=== PATIENT | female | born 1955 | race Caucasian/White ===

== ENCOUNTER → 2017-05-21 | Outpatient (CLI) | payer OTHER ==
[~2017-05-21] MED LIST: ACET-1138 PO; ACET-1256 PO; ASPEC325 PO; ASPI-390 PO; EFFSR150 PO; ERGO1CAP35 PO; HYDR25TA4 PO; HYOS1TAB PO; LEVO25TA5 PO; LINIGEL19 TOP; NAPR1TAB9 PO; RXC5 PO
--- NOTE | 2017-05-21 15:10 | MAMMOGRAPHY REPORT ---
BILATERAL DIGITAL SCREENING MAMMOGRAM TOMOSYNTHESIS WITH CAD: 05/21/2017 CLINICAL HISTORY: Routine screening. Patient has no complaints. TECHNIQUE: Breast tomosynthesis in addition to standard 2D mammography was performed. Current study was also evaluated with a Computer Aided Detection (CAD) system. COMPARISON: Comparison is made to exams dated: 05/22/2011 mammogram - [facility], , and 10/19/2008, 07/13/2007. BREAST COMPOSITION: There are scattered areas of fibroglandular density in both breasts. FINDINGS: There is a new circumscribed 2.7 cm mass seen within the right anterior breast at approxima tely 3:00, for which targeted ultrasound is recommended for further evaluation. This may represent a cyst. The remainder of both breasts are stable compared to prior exams, without suspicious masses, calcific ations, or areas of architectural distortion noted. Scattered bilateral benign-appearing calcificati ons are not significantly changed. Bilateral asymmetries are stable, including a focal asymmetry in the right upper outer quadrant as well as an asymmetry within the left subareolar breast. IMPRESSION: ACR BI-RADS CATEGORY 0: INCOMPLETE EVALUATION: NEED ADDITIONAL IMAGING EVALUATION Right breast mass, for which additional imaging evaluation is recommended. The patient will be kang d to schedule an appointment. Approximately 10% of breast cancers are not detected with mammography. A negative mammographic report should not delay biopsy if a clinically suggestive mass is present. Lori Jackson M.D. /:05/21/2017 07:55:28 Control Officer: Brianna Polanco, [facility] letter sent: Addl Imaging 0 BI-RADS Code: ACR BI-RADS Category 0: Incomplete Evaluation: Need Additional Imaging Evaluation
== END | disposition home or self-care (01) ==
LOC: C.MAMM 07:27
PROVIDERS: ATTEND Family Medicine
DX: Z12.31 Encounter for screening mammogram for malignant neoplasm of breast (principal); N63.10 Unspecified lump in the right breast, unspecified quadrant

== ENCOUNTER → 2017-06-02 | Outpatient (CLI) | payer OTHER ==
--- NOTE | 2017-06-02 15:15 | MAMMOGRAPHY REPORT ---
ULTRASOUND OF RIGHT BREAST: 06/02/2017 CLINICAL HISTORY: 62-year-old woman called back from screening mammography for a newly visualized 2.7 cm mass in the 3:00 anterior right breast. COMPARISON: Comparison is made to exams dated: 05/21/2017 mammogram, 05/22/2011 mammogram - [facility], 11/01/2008, 10/19/2008, and 07/13/2007. FINDINGS: Targeted ultrasound was performed in the 3:00 anterior right breast in the expected locati on of the new 2.7 cm circumscribed mammographic mass. In the 3:00 periareolar right breast, there is an oval circumscribed parallel hypoechoic solid mass measuring 2.9 x 1.6 x 2.4 cm, and smaller abutt ing 0.7 cm mass versus prominent lobulation near the superior aspect of the dominant mass. No signif icant increased vascularity is demonstrated. Given that this mass is new comparing to the prior avai lable 2011 mammogram and solid in nature, definitive characterization with an ultrasound-guided core needle biopsy is recommended. IMPRESSION: ACR BI-RADS CATEGORY 4: SUSPICIOUS - FOLLOW-UP RECOMMENDED 1. Right breast ultrasound guided core biopsy is recommended for a new solid 2.9 cm mass in the 3:00 periareolar breast. These results and recommendations were discussed with the patient at the time of the exam. She tenta tively scheduled the biopsy prior to leaving the department. Alem Holland M.D. ay/:06/02/2017 10:09:08 Car Scrubber: Megan TEMPLE)(Edgardo), [facility] letter sent: Abnormal 4/5 BI-RADS Code: ACR BI-RADS Category 4: Suspicious
== END | disposition home or self-care (01) ==
LOC: C.MAMM 09:23
PROVIDERS: ATTEND Family Medicine
DX: N63.12 Unspecified lump in the right breast, upper inner quadrant (principal)

== ENCOUNTER → 2017-06-12 | Outpatient (CLI) | payer OTHER ==
--- NOTE | 2017-06-12 14:01 | Discharge Instructions ---
Discharge Instructions Procedure Procedure Date: Jun 12, 2017. Reason for visit: Right Mass. Discharge Discharge Date: Jun 12, 2017. Discharge Diagnosis: status post breast biopsy Instructions Activity Recommendations: Additional Limitations (see below) Return to School/Work: no limitations Recommended Home Diet: No Limitations Provider Instructions: ACTIVITY RECOMMENDATIONS: * No lifting, pushing, pulling or exercising the affected side for three days. RETURN TO SCHOOL/WORK: * You may return to work/school after the procedure, but do not perform any strenuous activities for 24 to 48 hours. MEDICATIONS: * Tylenol (two 325 mg) every four to six hours if needed for mild pain (if not allergic to Tylenol). DIET: * Resume previous diet. SPECIAL CARE INSTRUCTIONS: * Keep biopsy site dry for 24 hours. May shower after 24 hours, but do not soak (bathe) incision. * May remove Tegaderm (plastic patch) tomorrow AFTER showering. * Leave the steri-strips on for one week. Allow the steri-strips to fall off by themselves. If not off after one week, you may remove them. You may place a Bandaid crosswise over the strips, if desired. * Apply ice 10 minutes on and 10 minutes off as needed. * Wear a bra at bedtime to sleep more comfortably for 2-3 days. * Your referring physician should have the results after approximately 5 to 7 business days. * Call for unusual bleeding, fever, drainage, etc or if you have any questions call during normal business hours or after hours call Dr Jackson, . FOLLOW UP VISIT: Follow-up with Referring Physician as scheduled. Allergies Coded Allergies: No Known Allergies (Verified , 01/29/16) Jessica Hill Recommendations: Call your doctor if: * Temperature above 101 degrees * Pain not relieved by pain medicine ordered * There is increased drainage or redness from any incision * You have any unanswered questions or concerns. Your Doctors Instructions noted above were prepared by provider Lori Jackson. Patient Signature Section: Patient Instructions Signature Page Nia Brower Patient (or Guardian) Signature/Date: I have read and understand the instructions given to me by my caregivers. Caregiver/RN/Doctor Signature/Date: The above-named patient and/or guardian has received patient instructions on this date. + Original Patient Signature Page (only) stays with chart. Please make copy for patient.
--- NOTE | 2017-06-15 15:17 | MAMMOGRAPHY REPORT ---
ULTRASOUND GUIDED BIOPSY RIGHT BREAST: 06/12/2017 CLINICAL HISTORY: Right 3:00 periareolar breast mass. PATIENT CONSENT: The procedure, risks and benefits were discussed with the patient and informed writt en consent was obtained. A timeout was performed immediately prior to the procedure. PROCEDURE DESCRIPTION: With ultrasound guidance, aseptic technique, and lidocaine as the local anesth etic (1% lidocaine to anesthetize the skin and 1% lidocaine with epinephrine to anesthetize the deepe r tissues), the mass of concern in the right 3:00 periareolar breast was sampled 3 times with a 14-ga uge Achieve biopsy needle. Immediately thereafter, with ultrasound guidance, aseptic technique, and lidocaine as the local anesthetic, a metallic localizer clip was placed centrally in the mass. Direc t pressure was applied to the site immediately post procedure and hemostasis was achieved. Postproce dure unilateral mammograms were performed to confirm placement of the clip in the expected location o f the breast mass. The patient tolerated the procedure without complication. She was given wound ca re instructions. The specimens were sent to pathology for analysis. COMPARISON: Comparison is made to exams dated: 06/02/2017 ultrasound, 05/21/2017 mammogram, 05/22/2011 mammogram - [facility], 11/01/2008, 10/19/2008, and 07/13/2007. IMPRESSION: ULTRASOUND GUIDED BIOPSY Ultrasound-guided core needle biopsy of the right 3:00 breast mass, with clip placement. The patient will receive pathology results from her referring provider. Lori Jackson M.D. ah/:06/12/2017 14:02:50 Heel Scorer: Brianna TEMPLE)(Edgardo), [facility]
--- NOTE | 2017-06-15 15:19 | MAMMOGRAPHY REPORT ---
UNILATERAL RIGHT DIGITAL DIAGNOSTIC MAMMOGRAM: 06/12/2017 CLINICAL HISTORY: Status post right breast biopsy. TECHNIQUE: Postprocedural right CC and ML views were obtained. COMPARISON: Comparison is made to exams dated: 05/21/2017 mammogram, 06/02/2017 ultrasound, 05/22/2011 mammogram - [facility], and 11/01/2008. BREAST COMPOSITION: There are scattered areas of fibroglandular density in the right breast. FINDINGS: A new biopsy marker clip is seen within the biopsied mass in the right 3:00 breast. No sig nificant postbiopsy hematoma is seen. IMPRESSION: POST PROCEDURE IMAGING FOR MARKER PLACEMENT New biopsy marker clip status post right breast biopsy. Pathology results are pending. Approximately 10% of breast cancers are not detected with mammography. A negative mammographic report should not delay biopsy if a clinically suggestive mass is present. Lori Jackson M.D. ah/:06/12/2017 14:43:51 [employer] Rep: Brianna Cabello RT(R)(M), [facility] BI-RADS Code: Post Procedure Imaging For Marker Placement
== END | disposition home or self-care (01) ==
LOC: C.MAMM 13:34
PROVIDERS: ATTEND Family Medicine
DX: R92.8 Other abnormal and inconclusive findings on diagnostic imaging of breast (principal); N63.10 Unspecified lump in the right breast, unspecified quadrant; D24.1 Benign neoplasm of right breast

== ENCOUNTER 2019-04-24 12:06 | Inpatient (IN) ==
--- OUTSIDE RECORDS SUMMARY | 2019-04-24 12:09 | External Medical Summary | Continuity of Care Document ---
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.9) (D17.9) Allergies and Adverse Reactions No Known Drug Allergies (Allergy) Medications B-12 TABS Refills: [address] Arthritis Pain 500 MG TABS Refills: 0 Omeprazole 40 MG Oral Capsule Delayed Release Refills: 0 hydroCHLOROthiazide 25 MG Oral Tablet Refills: 0 Codeine Sulfate 30 MG Oral Tablet Refills: 0 Effexor XR 75 MG Oral Capsule Extended Release 24 Hour Refills: 0 Procedures History of Hysterectomy Status: Complete d Immunizations Immunizations not documented Family History Father Family history of Diabetes Mellitus (V18.0) Status: Active Family history of Hypertension (V17.49) Status: Active Social History - Smoking Status Smoker. current status unknown Plan of Treatment Planned Observations Planned Goals not documented Results No Known Results Results not documented Encounters Appointment; Larry Redd M.D. 29-May-2011 10:30 Encounter Diagnosis: Problem not documented
--- OUTSIDE RECORDS SUMMARY | 2019-04-24 12:09 | External Medical Summary | Continuity of Care Document ---
:1955 Author Name Haily Flower, Provider Address Unavailable Unavailable , Care Team Providers Name Role Phone Tramaine Flower, Larry Lanier Unavailable [email or web address] Unavailable Unavailable Problems Lipoma (214.9) (D17.9) Allergies and Adverse Reactions No Known Drug Allergies (Allergy) Medications Effexor XR 75 MG Oral Capsule Extended Release 24 Hour Refills: 0 Codeine Sulfate 30 MG Oral Tablet Refills: 0 hydroCHLOROthiazide 25 MG Oral Tablet Refills: 0 Omeprazole 40 MG Oral Capsule Delayed Release Refills: [address] Arthritis Pain 500 MG TABS Refills: 0 B-12 TABS Refills: 0 Procedures History of Hysterectomy Status: [...]
[2019-04-24] MEDS ORDERED: KETOROLAC 30 MG/ML VIAL IV STA (12:14)
[2019-04-24] MEDS ORDERED: SODIUM CHLORIDE 0.9% 500 ML IV SCH (12:15)
[2019-04-24] MEDS ORDERED: ONDANSETRON INJ 2 MG/ML 2 ML VIAL IV STA (12:15)
[2019-04-24 12:44] LABS: Basophils # (auto) 0.02 K/uL (0-0.2); Basophils % (auto) 0.2 %; Eosinophils # (auto) 0.07 K/uL (0-0.5); Eosinophils % (auto) 0.7 %; Hematocrit (blood only) 46.6 % (37-47); Hemoglobin 16.4 g/dL (12.0-16.0); Immature Granulocytes # (auto) 0.03 K/uL (0.00-0.02); Immature Granulocytes % (auto) 0.3 %; Lymphocytes # (auto) 3.34 K/uL (1.2-3.4); Mean Corpuscular Hemoglobin 31.5 pg (25-34); Mean Corpuscular Hgb Conc 35.2 g/dL (32-36); Mean Corpuscular Volume 89.6 fL (80-100); Mean Platelet Volume 9.4 fL (7.4-10.4); Monocytes # (auto) 0.71 K/uL (0.11-0.59); Monocytes % (auto) 6.8 %; Neutrophils # (auto) 6.28 K/uL (1.4-6.5); Platelet Count 331 K/uL (130-400); RDW Coefficient of Variation 13.2 % (11.5-14.5); RDW Standard Deviation 43.7 fL (36.4-46.3); White Blood Count 10.45 K/uL (4.8-10.8)
[2019-04-24 13:01] LABS: Appearance Urine Clear (Clear); Bacteria Urine Automated Negative (Negative); Bilirubin Urine Negative (Negative); Blood Urine Trace (Negative); Cast Urine Automated 0 /lpf (0-5); Color Urine Yellow; Glucose Urine UA Negative (Negative); Ketones Urine Negative (Negative); Leukocyte Esterase Urine Negative (Negative); Nitrite Urine Negative (Negative); Protein Urine Negative (Negative); RBC Urine Automated 0-4 /hpf (0-4); Urobilinogen Urine Negative (Negative); pH Urine 6.5 (4.5-7.5)
[2019-04-24 13:02] LABS: Albumin Level 4.2 gm/dl (3.4-5.0); BUN Creatinine Ratio 12.5 (10-20); Calcium 9.5 mg/dl (8.5-10.1); Creatinine Clr Calc Pharmacy 97.2 ml/min; Est GFR (African American) 94.4; Est GFR (Non-African American) 81.5
[2019-04-24 13:04] LABS: Bilirubin,Total 0.5 mg/dl (0.2-1); Globulin 4.3 gm/dl (2.5-4.0); Total Protein 8.5 gm/dl (6.4-8.2)
--- NOTE | 2019-04-24 13:11 | CT Scan Report ---
CT abd pelvis wo con CLINICAL HISTORY: 64 years-old Female presenting with rt flank pain x 1 day. TECHNIQUE: Multidetector CT of the abdomen and pelvis was performed without the use of intravenous co ntrast. IV contrast: None. One or more dose lowering techniques were used consistent with the princip les of ALA (as low as reasonably achievable), including automatic exposure control, mA or kV adjust ment to individual patient size, and/or use of iterative reconstruction. COMPARISON: None. CT DOSE (mGy.cm): The estimated cumulative dose is 1381.75 mGy.cm. FINDINGS: Hammer Driver topogram: Unremarkable. Lung bases: Normal heart size. No pericardial or pleural effusion. Minimal dependent changes likely a telectasis. Liver: Normal morphology. Normal density. Biliary: No gross biliary ductal dilatation allowing for noncontrast technique. Normal gallbladder. Pancreas: Mild parenchymal atrophy. Spleen: Calcifications in the spleen suggesting history of granulomatous disease. Adrenal glands: Normal noncontrast appearance. Kidneys and ureters: Normal noncontrast appearance. Punctate nonobstructing lower pole left renal romi culus. No hydronephrosis. Normal ureters. Bladder: Incompletely evaluated secondary to underdistention. Pelvic organs: Torsion of the right ovarian vascular pedicle. The right ovary contains a large grossl y simple appearing 16.2 cm cyst. Normal noncontrast appearance of the left ovary. The uterus is surgi tania absent. Bowel: Mild diverticulosis of the sigmoid and distal descending colon without wall thickening or alix colonic inflammatory change. The appendix is normal. No bowel obstruction. Small sliding type hiatal hernia. Peritoneal cavity: No free fluid or intraperitoneal gas. Lymph nodes: No gross lymphadenopathy allowing for noncontrast technique. Vasculature: Atherosclerosis of the normal caliber abdominal aorta. Abdominal wall: Normal. Musculoskeletal: Degenerative changes of the spine. IMPRESSION: 1. Torsion of the right ovary secondary to a dominant 16.2 cm right ovarian cyst. The cyst is grossl y benign-appearing allowing for noncontrast technique. A benign or borderline ovarian mucinous lesion is not excluded given the patient's age and the lesion size. Gynecologic consultation is necessary. 2. Additional findings as above. The report will be called/faxed according to standard departmental protocol for a critical finding. ACT 112: Negative or not required by law. Electronically signed by: Robe Mcgee M.D. 04/24/2019 1:10 PM
[2019-04-24] MEDS ORDERED: MoRPHine SULFATE 4 MG/ML 1 ML CARP\\VIAL IV STA (13:28)
[2019-04-24] MEDS ORDERED: HYDROmorphone INJ 1 MG/ML SYRINGE IV STA (13:47)
--- NOTE | 2019-04-24 13:55 | Emergency Department Note ---
Entered by Kaylynn Bhakta acting as a scribe for Chacorta Crouch DO History of Present Illness General Chief complaint: Flank Pain Stated complaint: RLQ PAIN, WORSENING, RLQ MASS Time Seen by Provider: 04/24/19 12:14 Source: patient History of Present Illness Onset (ago): day(s) (yesterday afternoon) Location: back (right flank) Radiation: abdomen Pain Consistency: + constant Maximum Pain Intensity: 9 Quality: + sharp Associated symptoms: + nausea/vomiting The patient is a 64 year old female who presents to the Emergency Room with complaints of constant sharp right-sided flank pain beginning yesterday afternoon. The patient notes the pain extends into her abdomen. She reports nausea. She states she johnathon to [employer] right before coming to the ED. The patient denies a history of kidney stones. Home Medications Home Medications Medication Instructions Recorded Confirmed Type amoxicillin 500 mg PO TID 04/24/19 04/24/19 History ergocalciferol (vitamin D2) 1,250 mcg PO MONTHLY 04/24/19 04/24/19 History [Vitamin D2] hydrochlorothiazide 25 mg PO DAILY 04/24/19 04/24/19 History hyoscyamine sulfate 0.125 mg PO DAILY 04/24/19 04/24/19 History levothyroxine 25 mcg PO DAILY 04/24/19 04/24/19 History tramadol 50 - 100 mg PO Q6 PRN 04/24/19 04/24/19 History venlafaxine 150 mg PO QAM 04/24/19 04/24/19 History Allergies Allergy/AdvReac Type Severity Reaction Status Date / Time No Known Allergies Allergy Unknown Verified 04/24/19 13:22 Past Med/Surg History Medical History No pertinent past medical history Surgical History No pertinent past surgical history Family History Other No pertinent family history Social History Feels Safe at Home: Yes Smoking Status: Current every day smoker Review of Systems See HPI for pertinent positives & negatives. and A total of 10 systems reviewed and were otherwise negative Physical Exam Vital Signs Vital Signs - 24 hr 04/24/19 12:08 04/24/19 13:02 04/24/19 13:45 Temperature 36.6 C Temperature Source Oral Pulse Rate 71 Pulse Rate [Left Finger] 73 90 Respiratory Rate 18 16 16 Blood Pressure 191/96 H Blood Pressure [Left Arm] 167/71 H 179/85 H Blood Pressure Mean 127 Blood Pressure Mean [Left Arm] 103 116 Pulse Oximetry 96 99 94 Oxygen Delivery Method Room Air Room Air Room Air Sepsis Recent Fever Within 48 Hours No Sepsis New/Unexplained Change in Mental Status No Sepsis Action Taken by Nursing No Action Required CONSTITUTIONAL/VITAL SIGNS: Reviewed / noted above. GENERAL: Non-toxic in appearance. INTEGUMENTARY: Warm, dry, and [place]. HEAD: Normocephalic. EYES: without scleral icterus or trauma. ENT/OROPHARYNX: clear and moist. LYMPHADENOPATHY/NECK: Is supple without lymphadenopathy or meningismus. RESPIRATORY: Lungs clear and equal. CARDIOVASCULAR: Regular rate and rhythm. GI/ABDOMEN: Soft. No organomegaly or pulsatile mass. No rebound or guarding. Normal bowel sounds. Right lower lateral abdominal tenderness. EXTREMITIES: Warm and well perfused. BACK: Right CVA tenderness. NEUROLOGICAL: Intact without focal deficits. PSYCHIATRIC: normal affect. MUSCULOSKELETAL: Normally developed with good muscle tone. Course Course 1220: Past medical records reviewed. The patient was evaluated in room B06. A complete history and physical exam was performed. 1320: Upon reevaluation, the patient is resting more comfortably. I discussed findings and results with the patient. She verbalized agreement of the treatment plan. I discussed the patient's case with Dr. Arauz - Gynecology. The patient will be taken to the OR and then evaluated for further management. Administered Medications Discontinued Medications Sodium Chloride (Nss) 500 mls @ 999 mls/hr IV .Q31M KADE Stop: 04/24/19 12:45 Last Infusion: 04/24/19 12:58 Dose: 0 mls/hr Documented by: [id number] Admin: 04/24/19 12:34 Dose: 999 mls/hr Documented by: [id number] Ketorolac Tromethamine (Toradol) 30 mg IV NOW STA Stop: 04/24/19 12:15 Last Admin: 04/24/19 12:35 Dose: 30 mg Documented by: [id number] Morphine Sulfate (Morphine Sulfate) 4 mg IV NOW STA Stop: 04/24/19 13:29 Last Admin: 04/24/19 13:35 Dose: 4 mg Documented by: [id number] Ondansetron HCl (Zofran) 4 mg IV NOW STA Stop: 04/24/19 12:16 Last Admin: 04/24/19 12:35 Dose: 4 mg Documented by: [id number] Medical Decision Making Differential Diagnosis Differential diagnoses includes but is not limited to gastritis, peptic ulcer disease, GERD, gallbladder disease, pancreatitis, small bowel obstruction, acute coronary syndrome, pericarditis, ischemic bowel, irritable bowel disease, irritable bowel syndrome, appendicitis, diverticulitis, malignancy, hernia, urinary tract infection, torsion, /ectopic , perforation, tra sameera, infectious. Medical Records Attestation: I reviewed the patient's medical records. Home Medications Current Medication List: was personally reviewed by me Laboratory Data Attestation: I reviewed the patient's lab results. Result diagrams: 04/24/19 12:14 04/24/19 12:14 Lab Results 04/24/19 04/24/19 04/24/19 Range/Units 12:14 12:14 12:35 WBC 10.45 (4.8-10.8) K/uL RBC 5.20 (4.2-5.4) M/uL Hgb 16.4 H (12.0-16.0) g/dL Hct 46.6 (37-47) % MCV 89.6 (80-100) fL MCH 31.5 (25-34) pg MCHC 35.2 (32-36) g/dL RDW Std Deviation 43.7 (36.4-46.3) fL RDW Coeff of Reina 13.2 (11.5-14.5) % Plt Count 331 (130-400) K/uL MPV 9.4 (7.4-10.4) fL Immature Gran % (Auto) 0.3 % Neut % (Auto) 60.0 % Lymph % (Auto) 32.0 % [place] % (Auto) 6.8 % Eos % (Auto) 0.7 % Baso % (Auto) 0.2 % Immature Gran # (Auto) 0.03 H (0.00-0.02) K/uL Neut # (Auto) 6.28 (1.4-6.5) K/uL Lymph # (Auto) 3.34 (1.2-3.4) K/uL [place] # (Auto) 0.71 H (0.11-0.59) K/uL Eos # (Auto) 0.07 (0-0.5) K/uL Baso # (Auto) 0.02 (0-0.2) K/uL Sodium 135 L (136-145) mmol/L Potassium (3.5-5.1) mmol/L Chloride 100 (98-107) mmol/L Carbon Dioxide 30 (21-32) mmol/L Anion Gap 5.0 (3-11) BUN 10 (7-18) mg/dl Creatinine 0.78 (0.6-1.2) mg/dl Est Cr Clr Drug Dosing 97.2 ml/min Est GFR ( Amer) 94.4 Est GFR (Non-Af Amer) 81.5 BUN/Creatinine Ratio 12.5 (10-20) Glucose 107 H (70-99) mg/dl Calcium 9.5 (8.5-10.1) mg/dl Total Bilirubin 0.5 (0.2-1) mg/dl AST (15-37) U/L ALT 19 (12-78) U/L Alkaline Phosphatase 92 (45-117) U/L Total Protein 8.5 H (6.4-8.2) gm/dl Albumin 4.2 (3.4-5.0) gm/dl Globulin 4.3 H (2.5-4.0) gm/dl Albumin/Globulin Ratio 1.0 (0.9-2) Lipase 86 (73-393) U/L Urine Color Yellow Urine Appearance Clear (Clear) Urine pH 6.5 (4.5-7.5) Ur Specific [place] 1.010 (1.000-1.030) Urine Protein Negative (Negative) Urine Glucose (UA) Negative (Negative) Urine Ketones Negative (Negative) Urine Blood Trace H (Negative) Urine Nitrite Negative (Negative) Urine Bilirubin Negative (Negative) Urine Urobilinogen Negative (Negative) Ur Leukocyte Esterase Negative (Negative) Urine WBC (Auto) 1-5 (0-5) /hpf Urine RBC (Auto) 0-4 (0-4) /hpf U Hyaline Cast (Auto) 0 (0-5) /lpf U Epithel Cells (Auto) 10-20 H (0-5) /lpf Urine Bacteria (Auto) Negative (Negative) Imaging Data Radiologist's Impression: Radiology results as stated below per my review and the radiologist's interpretation: CT abd pelvis wo con CLINICAL HISTORY: 64 years-old Female presenting with rt flank pain x 1 day. TECHNIQUE: Multidetector CT of the abdomen and pelvis was performed without the use of intravenous contrast. IV contrast: None. One or more dose lowering techniques were used consistent with the principles of ALARA (as low as reasonably achievable), including automatic exposure control, mA or kV adjustment to individual patient size, and/or use of iterative reconstruction. COMPARISON: None. CT DOSE (mGy.cm): The estimated cumulative dose is 1381.75 mGy.cm. FINDINGS: Forest Fire Officer topogram: Unremarkable. Lung bases: Normal heart size. No pericardial or pleural effusion. Minimal dependent changes likely atelectasis. Liver: Normal morphology. Normal density. Biliary: No gross biliary ductal dilatation allowing for noncontrast technique. Normal gallbladder. Pancreas: Mild parenchymal atrophy. Spleen: Calcifications in the spleen suggesting history of granulomatous disease. Adrenal glands: Normal noncontrast appearance. Kidneys and ureters: Normal noncontrast appearance. Punctate nonobstructing lower pole left renal calculus. No hydronephrosis. Normal ureters. Bladder: Incompletely evaluated secondary to underdistention. Pelvic organs: Torsion of the right ovarian vascular pedicle. The right ovary contains a large grossly simple appearing 16.2 cm cyst. Normal noncontrast appearance of the left ovary. The uterus is surgically absent. Bowel: Mild diverticulosis of the sigmoid and distal descending colon without wall thickening or pericolonic inflammatory change. The appendix is normal. No bowel obstruction. Small sliding type hiatal hernia. Peritoneal cavity: No free fluid or intraperitoneal gas. Lymph nodes: No gross lymphadenopathy allowing for noncontrast technique. Vasculature: Atherosclerosis of the normal caliber abdominal aorta. Abdominal wall: Normal. Musculoskeletal: Degenerative changes of the spine. IMPRESSION: 1. Torsion of the right ovary secondary to a dominant 16.2 cm right ovarian cyst. The cyst is grossly benign-appearing allowing for noncontrast technique. A benign or borderline ovarian mucinous lesion is not excluded given the patient's age and the lesion size. Gynecologic consultation is necessary. 2. Additional findings as above. The report will be called/faxed according to standard departmental protocol for a critical finding. ACT 112: Negative or not required by law. Electronically signed by: Robe Mcgee M.D. 04/24/2019 1:10 PM Blood Pressure Blood Pressure Findings: Elevated blood pressure Blood Pressure Disposition: further management by hospitalist MDM Narrative This is a 64-year-old female who presents to the ED with a chief complaint of right lower quadrant abdominal pain. Her symptoms started yesterday afternoon. They worsened today. She was initially seen at [facility] and then sent here for further evaluation. The patient reports history of hysterectomy 12 years ago by the [facility] gynecology physician group. The patient has also some nausea associated with her pain. She denies any fevers. No urinary symptoms. No change in the bowels. Initial blood pressure was elevated. Her physical exam revealed some tenderness to the right lower quadrant of the abdomen. She also had some mild right lower CVA tenderness. Urinalysis did not show infection. CBC is normal, complete metabolic panel was unremarkable and lipase was negative. A CT scan of the abdomen pelvis reveals torsion of the right ovary secondary to a 16.2 cm right ovarian cyst. I spoke with Dr. Karla Holt. She will see the patient in the ED for further evaluation and care. The patient was treated with IV Toradol, IV morphine as well as IV Dilaudid for her pain. She was also given some IV fluids and IV Zofran for nausea. Impression & Plan Torsion of right ovary, Ovarian cyst Discharge Plan Visit Data Chief Complaint: Flank Pain Stated Complaint: RLQ PAIN, WORSENING, RLQ MASS ED Provider: Chacorta Crouch Discharge Problem: Torsion of right ovary, Ovarian cyst Patient Disposition: Being Evaluated by Hospitalist Forms Stand Alone Forms: [facility] Prescriptions Prescriptions: No Action tramadol 50 mg tablet 50 - 100 mg PO Q6 PRN (Reason: Pain) RF: 0 amoxicillin 500 mg Capsule 500 mg PO TID RF: 0 levothyroxine 25 mcg Tablet 25 mcg PO DAILY RF: 0 hyoscyamine sulfate 0.125 mg Tablet 0.125 mg PO DAILY RF: 0 hydrochlorothiazide 25 mg Tablet 25 mg PO DAILY RF: 0 ergocalciferol (vitamin D2) [Vitamin D2] 1,250 mcg (50,000 unit) Capsule 1,250 mcg PO MONTHLY RF: 0 venlafaxine 150 mg Tablet Extended Release 24hr 150 mg PO QAM RF: 0 Referrals Referrals: Lester Ward MD [Primary Care Provider] - Discharge Problem: Ovarian cyst Qualifiers: Laterality: unspecified laterality Qualified Code(s): N83.209 - Unspecified ovarian cyst, unspecified side The scribe's documentation has been prepared under my direction and personally reviewed by me in its entirety. I confirm that the note above accurately reflects all work, treatment, procedures, and medical decision making performed by me.
--- NOTE | 2019-04-24 14:46 | History & Physical Report ---
Date of Service April 24, 2019 Assessment & Plan (1) Torsion of right ovary: large (16.5cm) mostly simple cyst on CT scan with evidence of torsion plan is to proceed with exploratory laparotomy , RSO and possible LSO if abnormal. the procedure & it's risks were reviewed in detail with the patient & her daughter & all questions were answered to their satisfaction. History of Present Illness Primary Care Provider: Lester Ward MD Patient is a 64 year old multiparous white female who is s/p vaginal hyster in 2000 for menorrhagia presents with a history increasing right sided back paint that started the day prior to her presentation in the ER. She has back pain in general but this pain began to radiated around to the RLQ and made her nauseous. No bowerl or bladder changes recently. She has not been seen by a joggle press operator for many years. On CT scan today she has a 16cm torsed right ovarian cyst. no free fluid. left ovary appears to be normal/atrophic. The patient 's pain level requires IV pain meds for control and therefore the torsion will need to be addressed emergently. The patient & her daughter are argreeable to exploratory laparotomy & Right oophorectomy possible left oophorectomy if it appears to be abnormal. Allergies Allergy/AdvReac Type Severity Reaction Status Date / Time No Known Allergies Allergy Unknown Verified 04/24/19 13:22 Home Medications Home Medications Medication Instructions Recorded Confirmed Type amoxicillin 500 mg PO TID 04/24/19 04/24/19 History ergocalciferol (vitamin D2) 1,250 mcg PO MONTHLY 04/24/19 04/24/19 History [Vitamin D2] hydrochlorothiazide 25 mg PO DAILY 04/24/19 04/24/19 History hyoscyamine sulfate 0.125 mg PO DAILY 04/24/19 04/24/19 History levothyroxine 25 mcg PO DAILY 04/24/19 04/24/19 History tramadol 50 - 100 mg PO Q6 PRN 04/24/19 04/24/19 History venlafaxine 150 mg PO QAM 04/24/19 04/24/19 History Patient History Medical History (Updated 04/24/19 @ 14:38 by Karla Arauz MD, FACOG) DJD (degenerative joint disease) HTN (hypertension) Hypothyroidism No pertinent past medical history Surgical History (Updated 04/24/19 @ 14:42 by Karla Arauz MD, FACOG) History of ankle surgery History of bilateral knee replacement No pertinent past surgical history Status post vaginal hysterectomy Family History Other No pertinent family history Social History Feels Safe at Home: Yes Smoking Status: Current every day smoker Review of Systems All systems reviewed & are unremarkable except as noted in HPI & below Physical Exam Constitutional: WD/WN, vitals as above Respiratory: normal respiratory effort, lungs clear to auscultation Cardiovascular: RRR, no murmur, no edema Gastrointestinal (Abdomen): Inspection/Auscultation: abdomen normal to inspection Percussion/Palpation: + abdomen tender (diffusely in lower abdomen), + guarding and abdomen soft; no hepatosplenomegaly Results & Data Vital Signs (Past 12 Hours) Vital Signs Temp Pulse Pulse Resp BP BP Pulse Ox 04/24/19 14:12 75 20 166/73 H 93 04/24/19 13:45 90 16 179/85 H 94 04/24/19 13:02 73 16 167/71 H 99 04/24/19 12:08 97.9 F 71 18 191/96 H 96
[2019-04-24] MEDS ORDERED: CEFAZOLIN 3000MG 72.5 ML IV ONE (14:50)
[2019-04-24] MEDS ORDERED: cefOXitin 2,000 MG/60 ML BAG IV SCH (15:00)
[2019-04-24] MEDS ORDERED: LACTATED RINGER'S 1,000 ML IV SCH ×2 (15:00→17:45)
--- NOTE | 2019-04-24 15:34 | Anesthesiology Consultation ---
Date of Service April 24, 2019 Assessment & Plan (1) Encounter for pre-operative examination: Chart Review Chart Review: Acceptable Risk for Surgery and Patient NOT seen in Pre Admission Testing Consults Requested none ASA [id number] Proposed Anesthesia Anesthesia Type: General Risk / Benefits Reviewed With: PT / POA / Parent / Guardian, Accepts Plan and Informed Consent Obtained History Surgery Operation Date: 04/24/19 16:00 Proposed Procedures p Oophorectomy - Karla Arauz MD, FACOG Height/Weight Height: 5 ft 7 in Weight: 113.4 kg Allergies Allergy/AdvReac Type Severity Reaction Status Date / Time No Known Allergies Allergy Unknown Verified 04/24/19 13:22 Medications Home Medications Medication Instructions Recorded Confirmed Last Taken amoxicillin 500 mg PO TID 04/24/19 04/24/19 04/24/19 ergocalciferol (vitamin D2) 1,250 mcg PO MONTHLY 04/24/19 04/24/19 Unknown [Vitamin D2] hydrochlorothiazide 25 mg PO DAILY 04/24/19 04/24/19 04/24/19 hyoscyamine sulfate 0.125 mg PO DAILY 04/24/19 04/24/19 04/24/19 levothyroxine 25 mcg PO DAILY 04/24/19 04/24/19 04/24/19 tramadol 50 - 100 mg PO Q6 PRN 04/24/19 04/24/19 Unknown venlafaxine 150 mg PO QAM 04/24/19 04/24/19 04/24/19 Active Medications Generic Name Dose Route Start Last Admin Trade Name Freq PRN Reason Stop Dose Admin Lactated Ringer's 1,000 mls @ 125 mls/hr 04/24/19 15:00 04/24/19 15:15 Lr IV 04/24/19 22:59 125 mls/hr .Q8H KADE Administration NPO Date Last Intake of Fluids: 04/24/19 Time Last Intake of Fluids: 12:00 Last Intake of Fluids Comment: drink of water Date Last Intake of Solids: 04/23/19 Time Last Intake of Solids: 18:15 Past Medical History Medical History DJD (degenerative joint disease) HTN (hypertension) Hypothyroidism No pertinent past medical history Exercise / Class Metabolic Activity II 4-5 Yardwork/Stairs/Walk up hill Past Family History Family History Other No pertinent family history Past Surgical History Surgical History History of ankle surgery History of bilateral knee replacement No pertinent past surgical history Status post vaginal hysterectomy Past Anesthesia History No Hx of Anesthesia Complications and No Family Hx of Anesthesia Complications History of PONV No Hx of PONV and No Hx of Motion Sickness Social History Smoking Status: Current every day smoker Physical Exam Vital Signs Last Vital Signs Temp 36.6 C 04/24/19 12:08 Pulse 78 04/24/19 15:07 Resp 14 04/24/19 15:07 BP 141/51 H 04/24/19 15:07 Pulse Ox 97 04/24/19 15:07 ENMT Mouth: no dentition abnormality Thyromental Distance: > or= 3.5 Finger Breadths Mallampati Class: II Neck normal visual inspection Respiratory normal respiratory effort Auscultation: lungs clear to auscultation bilaterally Cardiovascular Rate/Rhythm: regular rate and regular rhythm Psychiatric Orientation: alert Testing Laboratory Results 04/24/19 12:14 04/24/19 12:14 Urine Color Yellow 04/24/19 12:35 Urine Appearance Clear (Clear) 04/24/19 12:35 Urine pH 6.5 (4.5-7.5) 04/24/19 12:35 Ur Specific [place] 1.010 (1.000-1.030) 04/24/19 12:35 Urine Protein Negative (Negative) 04/24/19 12:35 Urine Glucose (UA) Negative (Negative) 04/24/19 12:35 Urine Ketones Negative (Negative) 04/24/19 12:35 Urine Nitrite Negative (Negative) 04/24/19 12:35 Ur Leukocyte Esterase Negative (Negative) 04/24/19 12:35 Urine WBC (Auto) 1-5 /hpf (0-5) 04/24/19 12:35 Urine RBC (Auto) 0-4 /hpf (0-4) 04/24/19 12:35 U Hyaline Cast (Auto) 0 /lpf (0-5) 04/24/19 12:35 U Epithel Cells (Auto) 10-20 /lpf (0-5) H 04/24/19 12:35 Urine Bacteria (Auto) Negative (Negative) 04/24/19 12:35 Blood Type O Positive 04/24/19 14:24 Antibody Screen NEGATIVE 04/24/19 14:24 Electrocardiogram Date: 04/24/19 Findings: + NSR @
[2019-04-24] MEDS ORDERED: fentaNYL citrate 100 MCG/2 ML VIAL ONE ×2 (15:40→15:41)
[2019-04-24] MEDS ORDERED: LIDOCAINE HCL 2% (LOCAL) INJ 50 ML VIAL ONE (15:44)
[2019-04-24] MEDS ORDERED: BUPIVACAINE LIPOSOME 1.3% 266 MG/20 ML VIAL ONE (15:44)
[2019-04-24] MEDS ORDERED: BUPIVACAINE 0.25% 30 ML VIAL ONE (16:12)
[2019-04-24] MEDS ORDERED: SUCCINYLCHOLINE CHLORIDE 20 MG/ML 10 ML VIAL ONE (16:23)
[2019-04-24] MEDS ORDERED: LIDOCAINE HCL 2% 2 ML VIAL/AMP(20MG/ML) INFIL ONE (16:23)
[2019-04-24] MEDS ORDERED: DEXAMETHASONE SOD INJ 4 MG/ML VIAL ONE (16:23)
[2019-04-24] MEDS ORDERED: KETOROLAC 30 MG/ML VIAL ONE ×2 (16:23→18:41)
[2019-04-24] MEDS ORDERED: NEOSTIGMINE METHYLSULFATE 5 MG/5 ML SYR ONE (16:23)
[2019-04-24] MEDS ORDERED: GLYCOPYRROLATE 0.2 MG/ML VIAL ONE (16:23)
[2019-04-24] MEDS ORDERED: ROCURONIUM BROMIDE 10 MG/ML 5 ML VIAL ONE (16:23)
[2019-04-24] MEDS ORDERED: PROPOFOL IV EMULSION 10 MG/ML 20 ML VIAL IV ONE (16:23)
[2019-04-24] MEDS ORDERED: ONDANSETRON INJ 2 MG/ML 2 ML VIAL ONE (16:23)
[2019-04-24] MEDS ORDERED: MoRPHine SULFATE PF 1 MG/ML 10 ML AMP/VIAL ONE (16:27)
[2019-04-24] MEDS ORDERED: PROMETHAZINE HCL 25 MG in SODIUM CHLORIDE 0.9% 50 ML IV PRN (17:34)
[2019-04-24] MEDS ORDERED: SENNA 8.6 MG TAB PO PRN (17:34)
[2019-04-24] MEDS ORDERED: IBUPROFEN 600 MG TAB PO PRN (17:34)
[2019-04-24] MEDS ORDERED: KETOROLAC 30 MG/ML VIAL IV PRN ×2 (17:34→18:40)
[2019-04-24] MEDS ORDERED: ONDANSETRON INJ 2 MG/ML 2 ML VIAL IV PRN ×2 (17:34→18:40)
[2019-04-24] MEDS ORDERED: OXYCODONE/ACETAMINOPHEN 5mg/325mg TAB PO PRN (17:34)
[2019-04-24] MEDS ORDERED: MAGNESIUM HYDROXIDE SUSP 30 ML UDC PO PRN (17:34)
[2019-04-24] MEDS ORDERED: MEPERIDINE HCL 50 MG/ML CARP IV PRN (17:34)
[2019-04-24] MEDS ORDERED: ACETAMINOPHEN 1,000 MG/100 ML VIAL IV PRN (17:34)
--- NOTE | 2019-04-24 17:40 | Post Operative Brief Note ---
PG Immediate Post Op with CF Date of Surgery April 24, 2019 Pre & Post Diagnosis Operation Date: 04/24/19 16:00 Pre-Op Diagnosis: Torsion of Right Ovary, Intractable Pelvic Pain Post-Op Diagnosis: Torsion of Right Ovary, Intractable Pelvic Pain I identified the patient and participated in the time-out.: Yes Procedure Operation Date: 04/24/19 16:00 Actual Procedures p Exploratory Laparotomy, Right Oopherectomy, Lysis of Adhesions(Right) - Karla Arauz MD, FACOG Surgeon Karla Arauz MD, FACOG Exploration Geologist Efraín Bryant RN Estimated Blood Loss 20 Findings Consistent with Post-Op Diagnosis (20+cm right ovarian cyst with torsion of the ovarian ligament) Specimens Specimen Description: Permanent A: Right Ovary Drains Mejia Catheter (inserted prior to procedure)
[2019-04-24] MEDS ORDERED: fentaNYL citrate 100 MCG/2 ML VIAL IV PRN (18:40)
[2019-04-24] MEDS ORDERED: ATROPINE SULFATE 0.1 MG/ML 10ML SYR IV PRN (18:40)
[2019-04-24] MEDS ORDERED: HYDROmorphone INJ 2 MG/ML SYR/VIAL IV PRN (18:40)
[2019-04-24] MEDS ORDERED: ePHEDrine sulfate 50 MG/ML AMP IV PRN (18:40)
--- NOTE | 2019-04-24 18:42 | Anesthesiology Progress Note ---
Date of Service April 24, 2019 Anesthesia Post Procedure Vital Signs Vital Signs: Temp Pulse Pulse Pulse Resp BP BP 04/24/19 18:35 57 L 17 181/83 H 04/24/19 18:25 60 14 181/77 H 04/24/19 18:15 63 16 164/74 H 04/24/19 18:05 72 17 160/75 H 04/24/19 17:55 36.4 C L 82 12 151/76 H 04/24/19 15:07 78 14 141/51 H 04/24/19 14:12 75 20 166/73 H 04/24/19 13:45 90 16 179/85 H 04/24/19 13:02 73 16 167/71 H 04/24/19 12:08 36.6 C 71 18 191/96 H Pulse Ox 04/24/19 18:35 98 04/24/19 18:25 100 04/24/19 18:15 100 04/24/19 18:05 100 04/24/19 17:55 100 04/24/19 15:07 97 04/24/19 14:12 93 04/24/19 13:45 94 04/24/19 13:02 99 04/24/19 12:08 96 Pain Intensity Flank: Pain Intensity: 4 Transfer of Care Handoff Completed per policy Notes Mental Status: alert / awake / arousable Patient Amnestic to Procedure: Yes Nausea / Vomiting: adequately controlled Pain: adequately controlled Airway Patency, RR, SpO2: stable & adequate BP & HR: stable & adequate Hydration State: stable & adequate Anesthetic Complications: no major complications apparent
--- NOTE | 2019-04-24 18:55 | Anesthesiology Progress Note ---
Date of Service April 24, 2019 Anesthesia Post Procedure Vital Signs Vital Signs: Temp Pulse Pulse Pulse Resp BP BP 04/24/19 18:45 36.6 C 60 18 162/89 H 04/24/19 18:35 57 L 17 181/83 H 04/24/19 18:25 60 14 181/77 H 04/24/19 18:15 63 16 164/74 H 04/24/19 18:05 72 17 160/75 H 04/24/19 17:55 36.4 C L 82 12 151/76 H 04/24/19 15:07 78 14 141/51 H 04/24/19 14:12 75 20 166/73 H 04/24/19 13:45 90 16 179/85 H 04/24/19 13:02 73 16 167/71 H 04/24/19 12:08 36.6 C 71 18 191/96 H Pulse Ox 04/24/19 18:45 100 04/24/19 18:35 98 04/24/19 18:25 100 04/24/19 18:15 100 04/24/19 18:05 100 04/24/19 17:55 100 04/24/19 15:07 97 04/24/19 14:12 93 04/24/19 13:45 94 04/24/19 13:02 99 04/24/19 12:08 96 Pain Intensity Flank: Pain Intensity: 4 Abdomen: Pain Intensity: 5 Transfer of Care Handoff Completed per policy Notes Mental Status: alert / awake / arousable Patient Amnestic to Procedure: Yes Nausea / Vomiting: adequately controlled Pain: adequately controlled Airway Patency, RR, SpO2: stable & adequate BP & HR: stable & adequate Hydration State: stable & adequate Anesthetic Complications: no major complications apparent Notes: TAP Blocks working well in pacu
--- NOTE | 2019-04-25 00:23 | Operative Report ---
DATE OF OPERATION: 04/24/2019 SURGEON: Karla Mendoza MD. SOFTWARE QUALITY ENGINEER: Efraín Bryant RN. PREOPERATIVE DIAGNOSES: Large right ovarian cyst and torsion of the right ovary and intractable pain. POSTOPERATIVE DIAGNOSES: Large right ovarian cyst and torsion of the right ovary and intractable pain. PROCEDURE: Exploratory laparotomy, removal of large right ovarian simple cyst and ovary, lysis of adhesions. ANESTHESIA: General endotracheal. BLOOD LOSS: 20 mL HISTORY OF PRESENT ILLNESS: The patient is a 64-year-old multiparous white female status post vaginal hysterectomy in 2000 for menorrhagia. She had been doing well and had not seen a stoker mechanic for many years, and developed back pain the day prior to her arrival in the Emergency Room. She has had back issues in the past and did not think it was anything different than her usual back pain; however, it then radiated to her right groin and continued to make her nauseous. She presented to the Emergency Room, a CT scan was done revealed a 16.5 cm simple cyst of the right adnexa with evidence of torsion. The left ovary could not be identified. Because of the patient's significant pain and the size of the cyst, it was felt prudent to proceed with surgery to remove the right ovary The patient understood the risks of the procedure and all questions were answered and she is willing to proceed. GROSS FINDINGS: The right ovarian cyst was much larger than 16 cm measuring more closer to approximately 30 cm. One and a half liters of clear fluid removed from the cyst before it could be removed through the incision. There is at least 200 mL of fluid still in the cyst cavity after it was extracted from the abdominal cavity. The left ovary and fallopian tubes were grossly normal. There were some filmy adhesions of bowel epiploica to the sidewall in the cul-de-sac and these were lysed without difficulty. After the ovary was removed, the pelvis was examined and the ureters could be seen traced far below the ovarian pedicle. DESCRIPTION OF PROCEDURE: After the patient received adequate general endotracheal anesthesia, she was prepped and draped in usual sterile fashion. A low transverse skin incision was made with the scalpel and carried to the fascia with the same scalpel. The fascial incision was then extended with Murphy scissors. The edges were then grasped with Lucio clamps and the underlying rectus muscle was bluntly and sharply dissected off the overlying fascia. The rectus muscles were bluntly divided in the midline and the peritoneum was entered bluntly. The right ovarian cyst could be palpated, it was far larger than the [address] scan. Because of its size, it could not be delivered through the uterine incision, a 15 mm Endobag was attempted to trap the cyst, so it could be drained; however, it was not large enough. Following this, the pelvic gutters around the cyst were packed with lap sponges. A needle suction was placed into the cyst cavity after 1-1/2 liters of fluid were removed, Missy clamps were used to clamp the needle opening closed, so the rest of the cyst could be removed without leaking any cyst fluid. The ovarian cyst wall was then teased out into the incision. There was at least a 2-3 twist to the ovarian ligament as well. Once the cyst wall was delivered through the incision, the ovarian pedicle was then clamped and the cyst and the right ovary were removed from the field. The ovarian pedicle was then sutured with 2 stitches of 0 Vicryl in a Chaya fashion. Hemostasis was noted to be excellent. After the cyst was removed, the O'Hensley-O'Piyush retractor was placed so that it could better visualize the pelvic floor. The filmy adhesions in the pelvic cul-de-sac were lysed with the Bovie, so that the course of the right ureter could be followed. The right ureter was then able to be seen peristalsing normally well below the pedicle site. Urine was clear at the end of the case. After all the packs and O'Hensley-O'Piyush retractor removed, the rectus muscles were brought together in the midline with individual stitches of 2-0 chromic. The fascia was then closed in a running fashion with 0 Vicryl, 2-0 plain catgut was used to decrease the adipose layer space. The skin edges were then reapproximated with a subcuticular stitch of 3-0 Vicryl. Prior to this, the adipose layer was irrigated with normal saline. The urine was again noted to be clear at the end of the case. The patient tolerated the procedure well and was stable upon arrival in recovery room. I attest to the content of the Intraoperative Record and any orders documented therein. Any exception s are noted below.
[2019-04-25] MEDS ORDERED: LEVOTHYROXINE SODIUM 25 MCG TABLET PO SCH (06:30)
[2019-04-25 06:34] LABS: Hematocrit (blood only) 35.4 % (37-47); Hemoglobin 11.8 g/dL (12.0-16.0)
--- NOTE | 2019-04-25 07:40 | Gynecologic Progress Note ---
Date of Service April 25, 2019 Assessment & Plan (1) S/P exploratory laparotomy: Patient doing well continue current care plan with po pain meds & regular diet. would like to go home later today if tolerating po well & po pain meds are effective. Present on Admission?: No (2) History of right salpingo-oophorectomy: Present on Admission?: No Subjective Patient doing well this morning. Mejia catheter is out but no void yet. Has been able to ambulate to the bathroom. tolerating PO fluids & some food. no nausea or vomiting. has not had any PO pain meds yet but comfortable after IV toradol dose. Review of Systems Review of Systems: All systems reviewed & are unremarkable except as noted in HPI & below Physical Exam Constitutional: WD/WN, vitals as above Cardiovascular: Extremities: no calf tenderness Gastrointestinal (Abdomen): normal bowel sounds, soft, nontender, no hepatosplenomegaly Inspection/Auscultation: abdomen normal to inspection and + abdominal surgical incision (some ecchymosis superior edge of incision. intact & dry.); abdomen not distended Psychiatric: A+Ox3, euthymic affect Results & Data Vital Signs (Past 12 Hours) Vital Signs Temp Pulse Resp BP Pulse Ox 04/25/19 03:15 98.6 F 78 20 120/80 96 04/25/19 00:25 98.8 F 74 20 124/84 95 04/24/19 22:15 98.8 F 64 18 124/78 95 04/24/19 21:15 98.8 F 68 18 144/99 H 95 04/24/19 20:15 98.8 F 87 18 162/81 H 93 04/24/19 19:45 98.8 F 64 16 166/77 H 95 PG Care Time/CCT Total # of Minutes Spent Total Time Spent with Patient: Total time spent is greater than 50% in coordination of care (as documented) at patient's floor/unit and/or counseling patient:
--- NOTE | 2019-04-25 08:00 | Anesthesiology Progress Note ---
Date of Service April 25, 2019 Anesthesia Post Procedure Vital Signs Vital Signs: Temp Pulse Pulse Pulse Resp BP BP 04/25/19 07:30 36.6 C 81 18 104/66 04/25/19 03:15 37.0 C 78 20 120/80 04/25/19 00:25 37.1 C 74 20 124/84 04/24/19 22:15 37.1 C 64 18 124/78 04/24/19 21:15 37.1 C 68 18 144/99 H 04/24/19 20:15 37.1 C 87 18 162/81 H 04/24/19 19:45 37.1 C 64 16 166/77 H 04/24/19 19:10 36.6 C 60 20 183/77 H 04/24/19 18:55 36.6 C 58 L 18 181/76 H 04/24/19 18:45 36.6 C 60 18 162/89 H 04/24/19 18:35 57 L 17 181/83 H 04/24/19 18:25 60 14 181/77 H 04/24/19 18:15 63 16 164/74 H 04/24/19 18:05 72 17 160/75 H 04/24/19 17:55 36.4 C L 82 12 151/76 H 04/24/19 15:07 78 14 141/51 H 04/24/19 14:12 75 20 166/73 H 04/24/19 13:45 90 16 179/85 H 04/24/19 13:02 73 16 167/71 H 04/24/19 12:08 36.6 C 71 18 191/96 H Pulse Ox 04/25/19 07:30 94 04/25/19 03:15 96 04/25/19 00:25 95 04/24/19 22:15 95 04/24/19 21:15 95 04/24/19 20:15 93 04/24/19 19:45 95 04/24/19 19:10 100 04/24/19 18:55 100 04/24/19 18:45 100 04/24/19 18:35 98 04/24/19 18:25 100 04/24/19 18:15 100 04/24/19 18:05 100 04/24/19 17:55 100 04/24/19 15:07 97 01/19/20 14:12 93 04/24/19 13:45 94 04/24/19 13:02 99 04/24/19 12:08 96 Pain Intensity Flank: Pain Intensity: 4 Abdomen: Pain Intensity: 5 Notes Mental Status: alert / awake / arousable and participated in evaluation Nausea / Vomiting: adequately controlled Pain: adequately controlled Airway Patency, RR, SpO2: stable & adequate BP & HR: stable & adequate Hydration State: stable & adequate
[2019-04-25] MEDS ORDERED: HYOSCYAMINE SULFATE 0.125 MG TAB PO SCH (09:00)
[2019-04-25] MEDS ORDERED: AMOXICILLIN 500 MG CAP PO SCH (09:00)
[2019-04-25] MEDS ORDERED: hydroCHLOROthiazide 25 MG TAB PO SCH (09:00)
[2019-04-25] MEDS ORDERED: VENLAFAXINE HCL XR 150 MG CAPXR PO SCH (09:00)
--- NOTE | 2019-04-25 21:37 | Electrocardiogram Report ---
Test Reason : Blood Pressure : / mmHG Vent. Rate : 066 BPM Atrial Rate : 066 BPM P-R Int : 150 ms QRS Dur : 092 ms QT Int : 442 ms P-R-T Axes : 050 029 048 degrees QTc Int : 463 ms Normal sinus rhythm Normal ECG When compared with ECG of 27-JUL-2015 16:13, No significant change was found Confirmed by Domenico Malagon ([id number]) on 04/25/2019 9:36:30 PM Referred By: REFERRED SELF Confirmed By:Domenico Malagon
--- NOTE | 2019-04-29 07:18 | Discharge Summary ---
PRINCIPAL DIAGNOSIS: Large right ovarian cyst and torsion of right ovary and intractable pain. PROCEDURE: Exploratory laparotomy, right salpingo-oophorectomy, lysis of adhesions. HISTORY OF PRESENT ILLNESS: The patient is a 64-year-old multiparous white female who presented to the Emergency Room on the afternoon of 04/24/2019. She had sudden onset of right lower quadrant pain. CT scan in the Emergency Room suggested a 16.5 cm simple cyst. The left ovary could not be identified. The patient was taken to the operating room because of the intractable pain. The cyst actually was closer to 30 cm in diameter, 1500 mL of fluid were drained from the cyst prior to being able to be removed through the incision. The rest of the surgery was uncomplicated. She did well postoperatively and was sent home in approximately 24 hours after her surgery with prescriptions for Percocet 1-2 tablets p.o. q.4 hours p.r.n. pain and ibuprofen 600 mg p.o. q.6 hours p.r.n. pain. She remained afebrile throughout her hospital stay. She was eating regular diet later on the evening of her surgery. Hemoglobin on admission was 16.4. Postoperatively, hemoglobin 11.8, hematocrit 35.4. However, we feel that she was hemoconcentrated and she does smoke a pack a day of cigarettes, which did account for the hemoconcentration as well. She was voiding without difficulty and ambulating without difficulty. P.o. pain medications were working well and the patient expressed interest in going home. She was sent home with prescriptions for the Percocet 1-2 tablets p.o. q.4 hours p.r.n. pain, the ibuprofen 600 mg p.o. q.4-6 hours p.r.n. pain. She is to call for temperature of 101 degrees or higher, burning or pain with urination, increasing in pain or redness in her incision, calf tenderness or any other concerns. She is to be seen in the office in 2 weeks for followup visit.
== END 2019-04-25 09:10 | disposition home or self-care (01) | DRG 743 ==
LOC: ED 12:06 → OR 15:14 → 4S2 17:34